=== PATIENT | female | born 1950 | race Caucasian/White ===

== ENCOUNTER 2024-04-28 07:37 | Day surgery (SDC) | payer MEDICARE ==
[~2024-04-28] VITALS: Ht 160 cm; Wt 79.6 kg
[~2024-04-28 07:37] MED LIST: Aspir 8181 MG PO; Balanced Salt Epinephrine Irrigation Solution 500 mL IR SCH; CALCIUM 600-VI1 EAC6 PO; Chantix1 MG PO; Diazepam 2 MG Tab PO PRN; Diethylpropion25 MG PO; ERGO400; LOVA40 PO; Lidocaine HCl/Pf 1% 5 ML VIAL XX SCH; MAGNESIUM PO; Methimazole5 MG; Moxifloxacin HCL 0.5 MG/0.1 ML 0.4MLSYR LEFTEYE SCH; Ondansetron 4 MG SoluTab MM PRN; PHENYLEPHRINE\\TROPICAMIDE\\TETRACAINE OPHTHALMIC DILATING SOLN LEFTEYE PRN; Povidone-Iodine 450 DROP/30 ML Solution LEFTEYE SCH; Povidone-Iodine 450 DROP/30 ML Solution ONE; Retin-A20 G1 TOP; Tetracaine HCl/Pf 0.5% Opth Soln 4 ml ONE; Triamcinolone Inj Susp 40 MG / ML 1ML Vial INJ SCH; Triamcinolone Inj Susp 40 MG / ML 1ML Vial ONE; VITAMIN B COMP0.4 MG; Vitamin C100 MG PO; [UNRECOGNIZED DRUG - OTHER] PO; diazePAM 2 MG,diazePAM 5 MG PO SCH
[2024-04-28] MEDS ORDERED: Diazepam 5 MG Tab ONE (08:05)
[2024-04-28] MEDS ORDERED: Diazepam 2 MG Tab ONE (08:05)
--- NOTE | 2024-04-28 08:27 | NUR ---
04/28/24 0827 Carmen Diaz TETRAGENET: 0816 OVIDIO: [id number]
[2024-04-28 09:23] VITALS: BP 133/72
== END 2024-04-28 09:46 | disposition home or self-care (01) ==
LOC: ORSCSDS 07:37
PROVIDERS: Ophthalmology
PROC: 08RK3JZ Replacement of Left Lens with Synthetic Substitute, Percutaneous Approach (ICD-10-PCS; principal; 2024-04-28 09:00)
DX: H25.813 Combined forms of age-related cataract, bilateral (principal); Z79.82 Long term (current) use of aspirin; Z79.899 Other long term (current) drug therapy
CPT/HCPCS: A9270; J3301; V2632

== ENCOUNTER 2024-05-05 07:34 | Day surgery (SDC) | payer MEDICARE ==
[~2024-05-05] VITALS: Ht 160 cm; Wt 78.5 kg
[~2024-05-05 07:34] MED LIST changes: +Diazepam 5 MG Tab PO PRN; +Diazepam 5 MG Tab PO SCH; +Lidocaine HCl/Pf 1% 5 ML VIAL ONE; -Moxifloxacin HCL 0.5 MG/0.1 ML 0.4MLSYR LEFTEYE SCH; +Moxifloxacin HCL 0.5 MG/0.1 ML 0.4MLSYR RIGHTEYE SCH; -PHENYLEPHRINE\\TROPICAMIDE\\TETRACAINE OPHTHALMIC DILATING SOLN LEFTEYE PRN; +PHENYLEPHRINE\\TROPICAMIDE\\TETRACAINE OPHTHALMIC DILATING SOLN RIGHTEYE PRN; -Povidone-Iodine 450 DROP/30 ML Solution LEFTEYE SCH; +Povidone-Iodine 450 DROP/30 ML Solution RIGHTEYE SCH
[2024-05-05] MEDS ORDERED: Diazepam 10 MG Tab ONE (07:57)
--- NOTE | 2024-05-05 08:33 | NUR ---
05/05/24 0833 Desiree Bustillos PATIENT REPORTS ANXIETY 2/10 PRIOR TO ADMINISTRATION OF VALIUM 10MG PO @ 0809. REASSESSMENT RIGHT NOW PATIENT REPORTS ANXIETY AT 2/10 OR POSSIBLY LOWER. STATES DOES NOT REALLY FEEL ANXIOUS AT ALL.
[2024-05-05 09:14] VITALS: BP 120/61
--- NOTE | 2024-05-05 09:28 | NUR ---
05/05/24 0928 Nereida Obando D/Tiffanie INSTRUCTIONS GIVEN TO PT, UNDERSTANDING VERBALIZED. PT GIVEN EYE KIT. VSS, ON RA. PT DENIES PAIN/NAUSEA. PT DECLINED OFFER OF SOMETHING TO DRINK. PT WHEELED TO PRIVATE VEHICLE, STEADY GAIT NOTED UPON AMBULATION FROM WC TO VEHICLE. PT HAS ALL BELONGINGS W/ HER. NO VISIBLE SIGNS OF DISTRESS NOTED.
== END 2024-05-05 09:27 | disposition home or self-care (01) ==
LOC: ORSCSDS 07:34
PROVIDERS: Ophthalmology
PROC: 08RJ3JZ Replacement of Right Lens with Synthetic Substitute, Percutaneous Approach (ICD-10-PCS; principal; 2024-05-05 09:00)
DX: H25.811 Combined forms of age-related cataract, right eye (principal); Z96.1 Presence of intraocular lens; E78.5 Hyperlipidemia, unspecified; G47.33 Obstructive sleep apnea (adult) (pediatric); F17.210 Nicotine dependence, cigarettes, uncomplicated; Z79.899 Other long term (current) drug therapy
CPT/HCPCS: A9270; J2003; J3301; V2632

== ENCOUNTER → 2025-01-24 | Outpatient (CLI) | payer MEDICARE ==
[~2025-01-24] MED LIST changes: -Balanced Salt Epinephrine Irrigation Solution 500 mL IR SCH; -Diazepam 2 MG Tab PO PRN; -Diazepam 5 MG Tab PO PRN; -Diazepam 5 MG Tab PO SCH; -Lidocaine HCl/Pf 1% 5 ML VIAL ONE; -Lidocaine HCl/Pf 1% 5 ML VIAL XX SCH; -Moxifloxacin HCL 0.5 MG/0.1 ML 0.4MLSYR RIGHTEYE SCH; -Ondansetron 4 MG SoluTab MM PRN; -PHENYLEPHRINE\\TROPICAMIDE\\TETRACAINE OPHTHALMIC DILATING SOLN RIGHTEYE PRN; -Povidone-Iodine 450 DROP/30 ML Solution ONE; -Povidone-Iodine 450 DROP/30 ML Solution RIGHTEYE SCH; -Tetracaine HCl/Pf 0.5% Opth Soln 4 ml ONE; -Triamcinolone Inj Susp 40 MG / ML 1ML Vial INJ SCH; -Triamcinolone Inj Susp 40 MG / ML 1ML Vial ONE; -diazePAM 2 MG,diazePAM 5 MG PO SCH
[2025-01-25 10:48] LABS: Bacterial Vaginosis PCR Negative (NEGATIVE); Candida Group, PCR NOT DETECTED (NOT DETECT); Candida glabrata-krusei, PCR NOT DETECTED (NOT DETECT)
== END | disposition home or self-care (01) ==
LOC: LAB SHORT 21:40 → LAB 21:40
PROVIDERS: Family Medicine
DX: R35.0 Frequency of micturition (principal); N89.8 Other specified noninflammatory disorders of vagina
CPT/HCPCS: 81515; 87077; 87086; 87186